=== PATIENT | female | born 1950 | race Caucasian/White ===

== ENCOUNTER 2016-12-16 21:29 | Emergency (ER) | payer OTHER, MEDICAID ==
[2016-12-17 01:02] VITALS: BP 145/88
== END 2016-12-17 01:02 | disposition home or self-care (01) ==
LOC: ED 21:29
DX: S20.212A Contusion of left front wall of thorax, initial encounter (principal); R25.1 Tremor, unspecified; B37.9 Candidiasis, unspecified; G89.29 Other chronic pain; M25.569 Pain in unspecified knee; M54.9 Dorsalgia, unspecified; M25.512 Pain in left shoulder; M25.511 Pain in right shoulder; R21 Rash and other nonspecific skin eruption; Z88.0 Allergy status to penicillin; W18.30XA Fall on same level, unspecified, initial encounter; Y93.89 Activity, other specified; Y99.8 Other external cause status; Y92.89 Other specified places as the place of occurrence of the external cause